=== PATIENT | male | born 1995 | race Caucasian/White ===

== ENCOUNTER 2021-04-23 13:36 | Emergency (ER) | payer OTHER ==
[~2021-04-23] VITALS: Ht 175.3 cm; Wt 69.1 kg
[2021-04-23 14:25] LABS: BASO % 0.3 % (0.0-1.0); EOS # 0.3 10^3/uL (0.0-0.5); EOS % 2.4 % (0.0-3.0); HEMATOCRIT 35.2 % (42.0-52.0); HEMOGLOBIN 11.9 g/dl (13.5-17.5); LYMPH # 1.7 10^3/uL (1.5-5.0); LYMPH % 15.3 % (24.0-44.0); MEAN CORPUSCULAR HEMOGLOBIN 29.4 pg (27.0-33.0); MEAN CORPUSCULAR HGB CONC 33.8 g/dl (32.0-36.5); MEAN CORPUSCULAR VOLUME 86.9 fl (80.0-96.0); MONO # 0.5 10^3/uL (0.0-0.8); MONO % 4.5 % (2.0-8.0); NEUTROPHILS # 8.6 10^3/uL (1.5-8.5); NEUTROPHILS % 77.1 % (36.0-66.0); PLATELET COUNT, AUTOMATED 176 10^3/uL (150-450); RED BLOOD COUNT 4.05 10^6/uL (4.30-6.10); WHITE BLOOD COUNT 11.1 10^3/uL (4.0-10.0)
--- NOTE | 2021-04-23 14:45 | REP ---
INDICATION: Syncope COMPARISON: None. TECHNIQUE: Axial noncontrast images from the skull base to the vertex with coronal reformations. This CT examination was performed using the following dose reduction techniques: Automated exposure control, adjustment of mA and/or kv according to the patient's size, and use of iterative reconstruction technique. FINDINGS: The ventricles, sulci, and cisterns are normal in position and appearance. Bowens-white differentiation is maintained. No acute intracranial hemorrhage, mass/mass effect, pathology or trauma/injury. No evidence for acute infarction. No extra-axial fluid collection. Calvarium is intact. Paranasal sinuses and mastoid air cells are clear. IMPRESSION: Normal noncontrast head CT. No evidence for acute intracranial pathology or trauma/injury. <Electronically signed by Evangelista Graves > 04/23/21 [id number]
[2021-04-23 14:49] LABS: ALBUMIN 3.5 GM/DL (3.2-5.2); ALT/SGPT 19 U/L (12-78); BILIRUBIN,DIRECT 0.2 MG/DL (0.0-0.2); BILIRUBIN,TOTAL 0.6 MG/DL (0.2-1.0); LIPASE 220 U/L (73-393); TOTAL PROTEIN 6.4 GM/DL (6.4-8.2)
[2021-04-23 15:29] LABS: CK-MB VALUE MASS < 1.0 NG/ML (<3.6); CPK CREATINE PHOSPHOKINASE 167 U/L (39-308); FREE T4 1.09 NG/DL (0.76-1.46); MAGNESIUM LEVEL 1.8 MG/DL (1.8-2.4); THYROID STIMULATING HORMONE 0.488 uIU/ML (0.358-3.740); TROPONIN I < 0.02 NG/ML (< 0.10)
[2021-04-23 16:19] VITALS: BP 109/68
== END 2021-04-23 16:31 | disposition home or self-care (01) ==
LOC: EDBD 13:36 → M ED 13:36
DX: R55 Syncope and collapse (principal); D64.9 Anemia, unspecified; R51.9 Headache, unspecified; F17.200 Nicotine dependence, unspecified, uncomplicated

== ENCOUNTER 2021-10-15 07:30 | Emergency (ER) | payer OTHER ==
[~2021-10-15] VITALS: Ht 177.8 cm; Wt 70.0 kg
[2021-10-15] MEDS ORDERED: ONDANSETRON 4MG/2ML VIAL IV ONE (07:40)
[2021-10-15] MEDS ORDERED: NS 1,000 ML IV ONE (07:40)
[2021-10-15 08:20] LABS: BASO % 0.1 % (0.0-1.0); EOS % 0.4 % (0.0-3.0); HEMATOCRIT 34.1 % (42.0-52.0); HEMOGLOBIN 11.8 g/dl (13.5-17.5); LYMPH # 0.2 10^3/uL (1.5-5.0); LYMPH % 3.3 % (24.0-44.0); MEAN CORPUSCULAR HEMOGLOBIN 29.9 pg (27.0-33.0); MEAN CORPUSCULAR HGB CONC 34.6 g/dl (32.0-36.5); MEAN CORPUSCULAR VOLUME 86.3 fl (80.0-96.0); MONO # 0.8 10^3/uL (0.0-0.8); MONO % 11.9 % (2.0-8.0); NEUTROPHILS # 5.8 10^3/uL (1.5-8.5); NEUTROPHILS % 83.6 % (36.0-66.0); PLATELET COUNT, AUTOMATED 153 10^3/uL (150-450); RED BLOOD COUNT 3.95 10^6/uL (4.30-6.10)
[2021-10-15 08:45] LABS: ALBUMIN 3.5 GM/DL (3.2-5.2); ALT/SGPT 18 U/L (12-78); BILIRUBIN,DIRECT 0.1 MG/DL (0.0-0.2); BILIRUBIN,TOTAL 0.4 MG/DL (0.2-1.0); BLOOD UREA NITROGEN 14 MG/DL (7-18); CALCIUM LEVEL 8.2 MG/DL (8.5-10.1); CARBON DIOXIDE LEVEL 25 MEQ/L (21-32); CHLORIDE LEVEL 106 MEQ/L (98-107); GLOMERULAR FILTRATION RATE > 60.0 (>60); GLUCOSE, FASTING 103 MG/DL (70-100); LIPASE 169 U/L (73-393); POTASSIUM SERUM 3.9 MEQ/L (3.5-5.1); SODIUM LEVEL 138 MEQ/L (136-145); TOTAL PROTEIN 6.5 GM/DL (6.4-8.2)
--- NOTE | 2021-10-15 08:45 | REP ---
INDICATION: wheezes, fever. COMPARISON: None. TECHNIQUE: Single portable AP view of the chest was performed. FINDINGS: There is no acute infiltrate or pulmonary edema. Lungs are clear. The heart is not significantly enlarged. The mediastinal silhouette is unremarkable. The visualized osseous structures are intact. IMPRESSION: No acute pulmonary disease. <Electronically signed by Ray Bowens > 10/15/21 [id number]
[2021-10-15 08:55] LABS: RSV AMPLIFICATION NEGATIVE (NEGATIVE)
[2021-10-15] MEDS ORDERED: KETOROLAC 30 MG/ML 1ML VIAL IV ONE (10:40)
[2021-10-15 11:17] VITALS: BP 109/72
== END 2021-10-15 11:26 | disposition home or self-care (01) ==
LOC: EDBD 07:30 → M ED 07:30
DX: U07.1 COVID-19 (principal); R11.2 Nausea with vomiting, unspecified; R52 Pain, unspecified; R50.9 Fever, unspecified
CPT/HCPCS: 71045; 80048; 80076; 83605; 83690; 85025; 87040; 87631; 96361; 96374; 99284; J1885

== ENCOUNTER 2022-02-02 20:00 | Emergency (ER) | payer OTHER ==
[~2022-02-02] VITALS: Ht 180.3 cm; Wt 71.5 kg
[2022-02-02] MEDS ORDERED: PRED20TA PO (23:24)
[2022-02-02] MEDS ORDERED: FAMO20TA PO (23:24)
[2022-02-02] MEDS ORDERED: methylPREDNISolone 125MG 2ML VIAL IV ONE (23:25)
[2022-02-02 23:43] VITALS: BP 130/88
== END 2022-02-02 23:44 | disposition home or self-care (01) ==
LOC: M ED 20:00
DX: L50.9 Urticaria, unspecified (principal)
CPT/HCPCS: 96374; 99283; J2930